=== PATIENT | female | born 1955 | race Caucasian/White ===

== ENCOUNTER 2024-09-18 18:40 | Emergency (ER) | payer MEDICARE, SELFPAY ==
[2024-09-18 18:42] VITALS: BP 169/94
[2024-09-18 20:44] VITALS: BMI 19.7
[2024-09-18 20:49] VITALS: BP 147/76
[2024-09-18 21:00] VITALS: BP 124/81
--- NOTE | 2024-09-18 22:33 | ED.GENMED ---
History of Present Illness
General
Chief Complaint: Esophageal Problem
Time Seen by Provider: 09/18/24 21:21
History of Present Illness
History of Present Illness:
Patient was eating a salad. Foreign body sensation of a piece of lettuce stuck in her throat. No breathing swallowing issues.
Phy Exam
Physical Exam
Physical Exam:
GENERAL: Alert and oriented in no apparent distress
EYE: Orbits normal.
NECK: Supple, no significant adenopathy.
ENT: Pharynx without erythema. No drooling no stridor speech normal
CARDIAC: Regular rate and rhythm without any obvious murmurs.
LUNGS: Clear breath sounds,normal
NEUROLOGICAL: Alert and oriented , grossly non-focal
SKIN: Warm and dry
PSYCH: Normal and appropriate interaction.
Course
Vital Signs
Initial and Last Documented VS:
Initial Vital Signs
Temp Pulse Resp BP Pulse Ox
97.5 F 68 16 169/94 100
09/18/24 18:42 09/18/24 18:42 09/18/24 18:42 09/18/24 18:42 09/18/24 18:42
Last Documented Vital Signs
Temp Pulse Resp BP Pulse Ox
97.5 F 68 16 169/94 99
09/18/24 18:42 09/18/24 18:42 09/18/24 18:42 09/18/24 18:42 09/18/24 20:44
*Critical Care Note
Total Time (30-74mins, 75-104mins- exclusive of procedures): Not Applicable
Update Note
Update Note:
Procedure: Fiberoptic scope. Appeared to be a small amount of greenish material plastered to the anterior wall of the hypopharynx near the vallecula. Airway is clear.
Patient drank liquids without issues. No drooling no stridor. Speech is normal. Reluctant to sedate and go after this small piece of organic material. ENT is in agreement. Outpatient follow-up as needed discussed the risk-benefit of approach
with patient and .
Of note prior to discharge patient feels like the foreign body passed.
ED Attending Note
-
Portions of this chart may have been created with voice recognition software.� Occasional wrong word or��sound alike� substitutions may have occurred due to the inherent limitations of voice recognition software.
Discharge Plan
Departure
Patient Disposition: Home (Routine Discharge)
Date of Disposition: 09/18/24
Time of Disposition: 22:34
Patient with high blood pressure during this ER visit?: Yes
Discharge Problem:
Hypopharynx foreign body
Instructions: Swallowed Objects, Adult (DC), BLOOD PRESSURE
Referrals:
Lidia Griffith MD [Family Provider] -
Emily Campos MD [Active] - Tomorrow
Activity Restrictions/Additional Instructions:
Gargle, drink plenty of liquids
If you do not feel is passed in the morning please call either the ENT listed or your ENT
Return sooner with shortness of breath inability to swallow increasing pain or any other concerning symptoms
Interventions
Interventions:
*Risk Screen - Suicide Last Done: 09/18/24 18:42
*General Assessment Last Done: 09/18/24 18:42
ED- Fall Risk Assessment Last Done: 09/18/24 20:44
*ED COVID-19 Vaccine History Last Done: 09/18/24 18:42
VR-Rjecix-Zpkcdaevcb Assessment Last Done: 09/18/24 20:44
ED-EENT Assessment Last Done: 09/18/24 20:44
Discharge Date and Time
Print Language: LAO
[2024-09-18 23:11] VITALS: BP 146/86
== END 2024-09-18 23:12 | disposition home or self-care (01) ==
LOC: EMR 18:40
PROVIDERS: EMERGENCY PHYSICIAN Emergency Medicine; FAMILY PHYSICIAN Internal Medicine
DX: T17.228A Food in pharynx causing other injury, initial encounter (principal); W44.F3XA Food entering into or through a natural orifice, initial encounter
CPT/HCPCS: 99282